=== PATIENT | female | born 1985 | race Hispanic/Latino ===

== ENCOUNTER → 2020-01-18 08:44 | Outpatient (CLI) | payer BC, SELFPAY ==
--- NOTE | ~2020-01-18 | US_ITS ---
EXAMINATION: US breast RT limited HISTORY: Palpable lump in the lower outer quadrant of the right breast TECHNIQUE: Limited right breast ultrasound was performed FINDINGS: There is no evidence of focal abnormal cystic or solid mass in the vicinity of the reported palpable abnormality of concern IMPRESSION: No specific sonographic correlate is identified for the reported palpable abnormality of concern. Fur ther evaluation at this time should be based on clinical assessment. Continued follow-up physical exa mination is recommended. BI-RADS Category 1: Negative Reviewed, dictated and finalized at location A. IMPRESSION: No specific sonographic correlate is identified for the reported palpable abnor mality of concern. Further evaluation at this time should be based on clinical assessment. Continued follow-up physical examination is recommended. BI-RADS Category 1: Negative
== END ==
DX: N63.0 Unspecified lump in unspecified breast (principal)
CPT/HCPCS: 76642